=== PATIENT | male | born 2000 | race Caucasian/White ===

== ENCOUNTER 2022-12-12 17:23 | Emergency (ER) | payer BC, OTHER ==
[2022-12-12] MEDS ORDERED: ONDANSETRON 4 MG/2 ML VIAL IVPUSH ONE (17:45)
[2022-12-12] MEDS ORDERED: SODIUM CHLORIDE 1,000 ML IV STA (17:45)
[2022-12-12] MEDS ORDERED: ONDANSETRON 4 MG/2 ML VIAL ONE (18:11)
[2022-12-12] MEDS ORDERED: FAMOTIDINE 20 MG/50 ML IVPB 20 MG/50 ML MG IVPB ONE ×2 (18:18→18:57)
[2022-12-12 18:27] LABS: HEMATOCRIT 42.3 % (35.4-49); HEMOGLOBIN 14.7 G/dL (11.7-16.9); MCHC 34.7 g/dl (32.0-35.9); MEAN PLT VOLUME 8.8 fl (7.5-11.1); PLATELET COUNT 260.6 10^3/uL (134-434); RBC 4.45 10^6/uL (4.00-5.60); RDW 12.6 % (11.9-15.9); WHITE BLOOD COUNT 10.7 10^3/uL (4.0-10.8)
[2022-12-12 18:36] LABS: ALBUMIN 4.6 g/dl (3.4-5.0); BILIRUBIN,TOTAL 0.4 mg/dl (0.2-1); CALCIUM 9.2 mg/dl (8.5-10); CREATININE 0.9 mg/dl (0.55-1.3); TOT PROT 7.8 g/dl (6.4-8.2)
[2022-12-12 18:47] VITALS: BP 146/78; PULSE 66; RESP 18; TEMP 97.8; BMI 30.2
[2022-12-12 19:12] LABS: PLATELET ESTIMATE ADEQUATE
== END 2022-12-12 21:07 | disposition home or self-care (01) ==
LOC: FER 17:23
PROC: 3E033GC Introduction of Other Therapeutic Substance into Peripheral Vein, Percutaneous Approach (ICD-10-PCS; principal; 2022-12-12)
DX: R11.2 Nausea with vomiting, unspecified (principal)
CPT/HCPCS: 0241U-QW; 36415; 80053; 83690; 85027; 99284-25